=== PATIENT | female | born 1945 | race Caucasian/White ===

== ENCOUNTER 2021-07-04 16:02 | Observation (INO) | payer MEDICARE ==
[~2021-07-04] VITALS: Ht 165.1 cm; Wt 42.0 kg
[~2021-07-04 16:02] MED LIST: ASPIRIN81 MG PO; ATENOLOL50 MG PO; B-12500 MCG SL; C 250 PO; CALCIUM500 M4 PO; FISH OIL1000 MG PO; HALCION0.25 M1 PO; HYDROCHLOROT50 MG PO; NEURONTIN300 MG PO; NIACIN SR500 MG PO; PLAVIX75 MG PO; SOMA350 MG PO; TOPAMAX100 MG PO; VITAMIN D400 UNI1 PO
[2021-07-04 17:11] LABS: HEMOGLOBIN 15.3 g/dl (12.0-16.0); IMMATURE GRANULOCYTES 0.3 % (0.0-5.0); MEAN CELL VOLUME 99.2 fL CALC (80.0-100.0); MEAN CORPUSCULAR HGB 31.2 pG CALC (26.0-32.0); MEAN CORPUSCULAR HGB CONC 31.5 g/dL CAL (32.0-36.0); NEUT# 9.02 thou/uL (2.00-7.15); RED BLOOD COUNT 4.9 mill/uL (4.20-5.60)
[2021-07-04 17:13] LABS: HEMATOCRIT 48.6 % (37.0-47.0)
[2021-07-04 17:26] LABS: ALBUMIN 5.1 g/dL (3.2-5.0); AMYLASE 81 u/l (30-110); ANION GAP 17 (6-22 (CALC)); BILIRUBIN, TOTAL 0.6 mg/dL (0.0-1.4); BUN 24 mg/dL (8-23); BUN/CREATININE RATIO 13 (12-20 (CALC)); CARBON DIOXIDE 25 mmol/l (22-30); CHLORIDE 102 mmol/l (95-108); CREATININE 1.8 mg/dL (0.5-1.0); ETHYL ALCOHOL 0 mg/dl (0-30); GFR 28 ML/MIN (>=60 (CALC)); GFR FOR AFR.AMER. 33 ML/MIN (>=60 (CALC)); LIPASE 57 u/l (23-300); POTASSIUM 4.3 mmol/l (3.5-5.1); SGOT/AST 31 u/l (9-36); SODIUM 139 mmol/l (137-146)
[2021-07-04 17:27] LABS: ACT PARTIAL THROMBO TIME 22.4 SECONDS (20.0-32.5); INTERNATIONAL NORMALIZED RATIO 0.9 RATIO (0.7-1.3); PROTHROMBIN TIME 9.6 SECONDS (9.0-12.5)
[2021-07-04 17:33] LABS: ALKALINE PHOSPHATASE 152 u/l (38-126); TOTAL PROTEIN 9.3 g/dL (6.3-8.2)
[2021-07-04 19:39] LABS: URINE BILIRUBIN - DIPSTICK NEGATIVE (NEGATIVE); URINE BLOOD DIPSTICK NEGATIVE (NEGATIVE); URINE COLOR YELLOW; URINE GLUCOSE - DIPSTICK NEGATIVE (NEGATIVE); URINE KETONE NEGATIVE (NEGATIVE); URINE LEUK ESTERASE NEGATIVE (NEGATIVE); URINE PROTEIN - DIPSTICK NEGATIVE (NEG-TRACE); URINE UROBILINOGEN - DIPSTICK 0.2 E.U./dL (0.2)
[2021-07-04 19:41] LABS: URINE NITRITE - DIPSTICK POSITIVE (Negative)
[2021-07-04 19:47] LABS: URINE BACTERIA MANY hpf; URINE SQUAMOUS EPITHELIAL CELL FEW EPI/hpf (0-FEW)
[2021-07-05 03:59] VITALS: BP 108/58
[2021-07-05 05:40] LABS: MEAN CORPUSCULAR HGB 31.5 pG CALC (26.0-32.0); MEAN CORPUSCULAR HGB CONC 31.5 g/dL CAL (32.0-36.0); RED BLOOD COUNT 3.94 mill/uL (4.20-5.60); RED CELL DISTRI WIDTH 14.1 % (11.5-15.5)
[2021-07-05 05:41] LABS: HEMATOCRIT 39.4 % (37.0-47.0); HEMOGLOBIN 12.4 g/dl (12.0-16.0)
[2021-07-05 05:45] LABS: CREATININE 1.4 mg/dL (0.5-1.0)
[2021-07-05 06:57] VITALS: BP 118/58
[2021-07-05 07:00] VITALS: BP 125/60
[2021-07-05 13:00] VITALS: BP 143/66
[2021-07-05] MEDS ORDERED: OMNICEF300 MG PO (13:14)
[2021-07-05] MEDS ORDERED: ZITHROMAX250 MG PO (13:14)
[2021-07-05 14:20] VITALS: BP 143/66
== END 2021-07-05 14:31 ==
LOC: ED 16:02 → ED-I 18:58 → MS2 18:58 → ED-I 07-05 00:04 → MS2 07-05 07:24
PROVIDERS: ADMIT Hospitalist; ATTEND Hospitalist
DX: J18.9 Pneumonia, unspecified organism (principal); R09.02 Hypoxemia; N39.0 Urinary tract infection, site not specified; R07.81 Pleurodynia; S00.33XA Contusion of nose, initial encounter; I10 Essential (primary) hypertension; E78.5 Hyperlipidemia, unspecified; I73.9 Peripheral vascular disease, unspecified; R91.8 Other nonspecific abnormal finding of lung field; G89.4 Chronic pain syndrome; K76.9 Liver disease, unspecified; F17.210 Nicotine dependence, cigarettes, uncomplicated; W18.11XA Fall from or off toilet without subsequent striking against object, initial encounter; Y92.002 Bathroom of unspecified non-institutional (private) residence as the place of occurrence of the external cause; Z89.511 Acquired absence of right leg below knee; Z95.820 Peripheral vascular angioplasty status with implants and grafts; Z20.822 Contact with and (suspected) exposure to COVID-19
CPT/HCPCS: Q9967